=== PATIENT | female | born 1955 | race Caucasian/White ===

== ENCOUNTER → 2018-02-05 15:21 | Outpatient (REF) | payer MEDICARE, MEDICAID, SELFPAY ==
[2018-02-05 18:18] LABS: Anion Gap 13.8 mEq/L (5-15); Carbon Dioxide 30 mmol/L (21.0-32.0); Chloride 103 mmol/L (98-107); Glucose 160 mg/dL (74-106); Potassium 4.8 mmoL/L (3.5-5.1); Sodium 142 mmol/L (136-145)
[2018-02-05 18:31] LABS: Basophils # 0.1 K/mm3 (0-0.2); Basophils % 0.6 % (0.1-2.0); Eosinophils # 0.3 K/mm3 (0.0-0.4); Eosinophils % 2.5 % (0.1-12.0); Hemoglobin 14.5 g/dL (12.2-16.2); Lymphocytes % 25.3 K/mm3 (10-50); Mean Corpuscular HGB Conc 33.7 g/dL (31.8-35.4); Mean Corpuscular Hemoglobin 31.7 pg (27.0-31.2); Mean Platelet Volume 7.6 fl (7.4-10.4); Monocytes # 0.5 K/mm3 (0.1-1.0); Monocytes % 4.5 % (1.7-9.3); Neutrophils % 67.1 % (37.0-80.0); Platelet Count 444 K/mm3 (142-424); Red Blood Count 4.58 M/mm3 (4.20-5.40); Red Cell Distribution Width 13.3 % (11.5-17.5)
[2018-02-05 19:08] LABS: Alanine Aminotransferase 13 U/L (12-78); Alkaline Phosphatase 102 U/L (46-116); Aspartate Amino Transferase 19 U/L (15-37); Bilirubin,Total 0.3 mg/dL (0.2-1.0); Blood Urea Nitrogen 13 mg/dL (7-18); Calcium 9.6 mg/dL (8.5-10.1); Chol/HDL Ratio 4.3 (1-3.5); Cholesterol 172 mg/dL (140-200); Creatinine,Serum 0.96 mg/dL (0.55-1.02); Estimated Glomerular Filt Rate 59 ml/min (>60); Free T4 (Free Thyroxine) 0.98 ng/dl (0.76-1.46); GFR (African American) 71 ML/MIN (>60); HDL Cholesterol 40 mg/dL (29-89); LDL Cholesterol 92 mg/dL (0-130); Thyroid Stimulating Hormone 0.99 uIU/ml (0.358-3.740); Triglycerides 199 mg/dL (30-200); VLDL Cholesterol 40 mg/dL (0-40)
[2018-02-05 19:29] LABS: Amphetamine/Metha Screen,Urine Negative ng/mL (<1000); Barbiturates Screen,Urine Negative ng/mL (<200); Benzodiazepines Screen,Urine Negative ng/mL (200); Cannabinoid Screen,Urine Negative ng/mL (<50); Cocaine Screen,Urine Negative ng/g (<300); Methadone Screen,Urine Negative ng/mL (<300); Opiate Screen,Urine Positive ng/mL (<300); Phencyclidine Screen,Urine Negative ng/mL (<25)
[2018-02-05 19:48] LABS: Hemoglobin A1C 6.6 % (0.0-7.0)
== END ==
LOC: LAB 15:21
PROVIDERS: Visit Provider Emergency Medicine
DX: M79.7 Fibromyalgia (principal); I10 Essential (primary) hypertension; E11.9 Type 2 diabetes mellitus without complications; M54.9 Dorsalgia, unspecified
CPT/HCPCS: 80053; 80061; 80305; 83036; 84439; 84443; 85025

== ENCOUNTER → 2018-03-03 15:12 | Outpatient (REF) | payer MEDICARE, MEDICAID, SELFPAY ==
[2018-03-03 20:56] LABS: Amphetamine/Metha Screen,Urine Negative ng/mL (<1000); Barbiturates Screen,Urine Negative ng/mL (<200); Benzodiazepines Screen,Urine Negative ng/mL (200); Cannabinoid Screen,Urine Negative ng/mL (<50); Cocaine Screen,Urine Negative ng/g (<300); Methadone Screen,Urine Negative ng/mL (<300); Opiate Screen,Urine Positive ng/mL (<300); Phencyclidine Screen,Urine Negative ng/mL (<25)
== END ==
LOC: LAB 15:12
PROVIDERS: Visit Provider Emergency Medicine
DX: Z79.899 Other long term (current) drug therapy (principal)
CPT/HCPCS: 80305

== ENCOUNTER → 2020-06-13 14:47 | Outpatient (CLI) | payer MEDICARE, MEDICAID, SELFPAY | PROVIDERS: Visit Provider Pediatrics | DX: L03.031 Cellulitis of right toe (principal) | CPT/HCPCS: 87070; 87077; 87186; 87205 ==

== ENCOUNTER → 2020-07-02 11:41 | Outpatient (CLI) | payer MEDICARE, MEDICAID, SELFPAY ==
--- NOTE | 2020-07-02 11:50 | XR_ITS ---
PROCEDURE: XR FOOT WT BEARING RT 3V CLINICAL INDICATION: Wound, pain COMPARISON: No exams were available for comparison FINDINGS: No fracture or dislocation. No lytic or blastic change. There is normal mineralization. The joint spaces are well-preserved. No significant degenerative/arthritic changes. No erosive changes evident. There is an accessory navicular bone. There is no definite abnormality of the soft tissues of the great toe. There is a small spur of the calcaneus at the insertion of the plantar tendon with 2 tiny bony ossicles adjacent to the spur. The plantar arch is normal. Other findings:None. IMPRESSION: No acute findings. No definite periosteal reaction of the 1st metatarsal head, proximal and distal phalanx of the great toe and no definite abnormal soft tissue radiolucency identified. Dictated by: Dr. Maynor Licea MD 07/03/2020 11:46 Dr. Maynor Licea MD in [place] 07/03/2020 11:46
[2020-07-02 13:06] LABS: Basophils # 0.1 K/mm3 (0-0.2); Basophils % 0.7 % (0.1-2.0); Eosinophils # 0.3 K/mm3 (0.0-0.4); Eosinophils % 2.8 % (0.1-12.0); Hematocrit 44.3 % (37.0-47.0); Hemoglobin 15.4 g/dL (12.2-16.2); Lymphocytes # 3.1 K/mm3 (0.7-4.5); Lymphocytes % 26.2 % (10-50); Mean Corpuscular HGB Conc 34.8 g/dL (31.8-35.4); Mean Corpuscular Hemoglobin 33.2 pg (27.0-31.2); Mean Corpuscular Volume 95.2 fl (81-99); Mean Platelet Volume 7.7 fl (7.4-10.4); Monocytes # 0.6 K/mm3 (0.1-1.0); Monocytes % 5.1 % (1.7-9.3); Neutrophils # 7.7 K/mm3 (1.8-7.8); Neutrophils % 65.2 % (37.0-80.0); Platelet Count 331 K/mm3 (142-424); Red Blood Count 4.66 M/mm3 (4.20-5.40); Red Cell Distribution Width 13.1 % (11.5-17.5); White Blood Count 11.8 K/mm3 (4.8-10.8)
[2020-07-02 13:25] LABS: Hemoglobin A1C 9.8 % (4.0-6.0)
[2020-07-02 13:32] LABS: Erythrocyte Sedimentation Rate 16 mm/hr (0-30)
[2020-07-02 13:35] LABS: Alanine Aminotransferase 20 U/L (12-78); Albumin Level 4.3 g/dl (3.5-5.0); Albumin/Globulin Ratio 1.5 (1.1-1.8); Alkaline Phosphatase 102 U/L (38-126); Anion Gap 17.1 mEq/L (5-15); Aspartate Amino Transferase 37 U/L (14-36); Bilirubin,Total 0.4 mg/dl (0.2-1.3); Blood Urea Nitrogen 23 mg/dl (7-17); Calcium 11.4 mg/dl (8.4-10.2); Carbon Dioxide 30 mmol/L (22.0-30.0); Chloride 94 mmol/L (98-107); Estimated Glomerular Filt Rate 50 ml/min (>60); GFR (African American) 61 ML/MIN (>60); Globulin 2.9 g/dL (1.3-3.2); Glucose 247 mg/dl (74-100); Potassium 4.1 mmoL/L (3.5-5.1); Sodium 137 mmol/L (136-145); Total Protein,Serum 7.2 g/dl (6.3-8.2)
== END ==
PROVIDERS: PCP Pediatrics; Visit Provider Podiatrist
DX: Z51.89 Encounter for other specified aftercare (principal); E11.621 Type 2 diabetes mellitus with foot ulcer; L97.519 Non-pressure chronic ulcer of other part of right foot with unspecified severity; Z79.84 Long term (current) use of oral hypoglycemic drugs
CPT/HCPCS: 36415; 73630; 80053; 83036; 85025; 85651

== ENCOUNTER 2020-07-12 14:30 | Outpatient (RCR) | payer MEDICARE, MEDICAID, SELFPAY | END 2020-07-12 14:35 | disposition home or self-care (01) | LOC: PT 14:30 | PROVIDERS: PCP Emergency Medicine; Visit Provider Pediatrics | DX: L08.9 Local infection of the skin and subcutaneous tissue, unspecified (principal); L03.031 Cellulitis of right toe | CPT/HCPCS: 97163; 97597 ==

== ENCOUNTER → 2020-07-17 09:27 | Outpatient (CLI) | payer MEDICARE, MEDICAID, SELFPAY ==
--- NOTE | 2020-07-17 09:28 | US_ITS ---
APPROVED REPORT Exam Type: Lower Extremity Segmental Pressures Internet Sourcer: Mickie Matt RVT Indications Rest Pain: Right Current Smoker Pt has wound bottom of rt foot Risk Factors Hypertension Obesity Diabetes Current Smoker Pressures/Indices Right Indices Left Indices Brachial 115.00 mmHg Brachial 117.00 mmHg Low Thigh 125.00 mmHg 1.07 Low Thigh 139.00 mmHg 1.19 Calf 132.00 mmHg 1.13 Calf 131.00 mmHg 1.12 Ankle(PT) 125.00 mmHg 1.07 Ankle(PT) 145.00 mmHg 1.24 Ankle(DP) 130.00 mmHg 1.11 Ankle(DP) 139.00 mmHg 1.19 Digit 103.00 mmHg 0.88 Digit 112.00 mmHg 0.96 Findings RT STEVIE:1.11 LT STEVIE:1.24 RT TBI:0.88 LT TBI:0.96 NORMAL PULSES BILATERAL NORMAL WAVEFORMS BILATERAL Conclusion RT STEVIE:1.11 LT STEVIE:1.24 RT TBI:0.88 LT TBI:0.96 NORMAL PULSES BILATERAL NORMAL WAVEFORMS BILATERAL Normal appearing resting noninvasive lower extremity arterial study. Electronically signed by : Med Tolbert MD 07/17/2020 19:42:23
== END ==
PROVIDERS: PCP Pediatrics; Visit Provider Podiatrist
DX: R09.89 Other specified symptoms and signs involving the circulatory and respiratory systems (principal)
CPT/HCPCS: 93923

== ENCOUNTER → 2020-08-01 10:17 | Outpatient (CLI) | payer MEDICARE, MEDICAID, SELFPAY ==
--- NOTE | 2020-08-01 10:21 | XR_ITS ---
PROCEDURE: XR FOOT WT BEARING RT 3V CLINICAL INDICATION: suspected foreign body of right foot COMPARISON: CR FTL3 FOOT-LT-3 VIEWS from 10/14/2016 CR FTR3 FOOT-RT-3 VIEWS from 10/14/2016 CR XR FOOT WT BEARING RT 3V from 07/02/2020 FINDINGS: No fracture or dislocation. No lytic or blastic change. There is normal mineralization. The joint spaces are well-preserved. No significant degenerative/arthritic changes. No erosive changes evident. Other findings:There was a question of a foreign body along the plantar surface of the great toe. No radiopaque foreign body is identified. There is an ununited ossification center at along the dorsal aspect of the navicular and there is evidence of an old distal tibial fracture IMPRESSION: No acute findings. Dictated by: Med Tolbert MD 08/01/2020 15:17 Med Tolbert MD in [place] 08/01/2020 15:17
--- NOTE | 2020-08-01 10:21 | US_ITS ---
PROCEDURE: US EXTREMITY RT LIMITED CLINICAL INDICATION: suspected foreign body COMPARISON: No exams were available for comparison FINDINGS: There was a question of a foreign body along the plantar aspect of the 1st metatarsal phalangeal junction. Ultrasound performed of this region. No hyperechoic foreign bodies are evident. There is a new area decreased echogenicity deep to the skin defect which could represent some underlying scarring or edema. No definite foreign body is apparent. IMPRESSION: No obvious echogenic foreign body. There is some decreased echogenicity deep to the scanned defect which could represent some edema or scarring Dictated by: Med Tolbert MD 08/01/2020 15:46 Med Tolbert MD in [place] 08/01/2020 15:46
== END ==
PROVIDERS: PCP Pediatrics; Visit Provider Nurse Practitioner
DX: S90.851A Superficial foreign body, right foot, initial encounter (principal); Z51.89 Encounter for other specified aftercare
CPT/HCPCS: 73630; 76882

== ENCOUNTER → 2020-08-23 14:45 | Outpatient (CLI) | payer MEDICARE, MEDICAID, SELFPAY ==
--- NOTE | 2020-08-23 14:46 | CT_ITS ---
PROCEDURE: CT FOOT RT WO CON CLINICAL HISTORY: foreign body Foreign body evaluation, foreign body in the ball of the foot COMPARISON: CR XR FOOT WT BEARING RT 3V from 08/01/2020 TECHNIQUE: Axial images obtained with sagittal and coronal reformats. All CT scans at the facility use one or more dose reduction, viz: automated exposure control, ma/kV adjustment per patient size (including targeted exams where dose is matched to indication, i.e. head), or iterative reconstruction technique. FINDINGS: There are 3 small calcific densities along the plantar and lateral aspect of the cuboid measuring 1 and 2 mm. There is some mild soft tissue swelling at this region. These are probably related to areas of dystrophic calcification as opposed to foreign bodies. Please correlate as the patient's area of pain and tenderness and clinical concern. No markers were placed to denote the area of concern. There is a small hyperdensity along the plantar aspect of the foot at the skin surface measuring 1-2 mm as seen on series 2, image 189 and may represent something upon the patient's skin. This is in the arch of the foot along the plantar surface and could even be imbedded in the skin superficially. No fluid collections are evident. No bony erosive changes. No fracture or dislocation. Small calcaneal spurs present along with some calcification of the plantar fascia posteriorly. There is a small Achilles enthesophyte. Ununited ossification center noted left the dorsal and proximal aspect of the navicular. IMPRESSION: No definite subcutaneous radiopaque foreign body evident. There is a small cutaneous hyperdensity in the mid aspect of the plantar arch superficial to the distal calcaneal region. This may be something upon the patient scan or could even be an and bed superficial foreign body. This should be visible if it were a foreign body. Please see above for detail Dictated by: Med Tolbert MD 08/25/2020 10:47 Med Tolbert MD in [place] 08/25/2020 10:47
== END ==
PROVIDERS: PCP Pediatrics; Visit Provider Nurse Practitioner
DX: M79.5 Residual foreign body in soft tissue (principal)
CPT/HCPCS: 73700

== ENCOUNTER → 2020-10-09 17:45 | Outpatient (CLI) | payer MEDICARE, MEDICAID, SELFPAY | PROVIDERS: Visit Provider Nurse Practitioner | DX: E11.621 Type 2 diabetes mellitus with foot ulcer (principal); L97.519 Non-pressure chronic ulcer of other part of right foot with unspecified severity; Z79.84 Long term (current) use of oral hypoglycemic drugs | CPT/HCPCS: 87070; 87077; 87186; 87205 ==

== ENCOUNTER 2021-09-16 15:25 | Emergency (ER) | payer MEDICARE, MEDICAID, SELFPAY ==
[2021-09-16 15:26] VITALS: BP 113/68; PULSE 109; RESP 16; TEMP 36.8; O2SAT 96; BMI 36.1
--- NOTE | 2021-09-16 16:25 | CT_ITS ---
PROCEDURE INFORMATION: Exam: CT Abdomen And Pelvis Without Contrast Exam date and time: 09/16/2021 4:25 PM Age: 65 years old Clinical indication: Other: Right flank pain; Additional info: Right flank pain// history of kidney stones TECHNIQUE: Imaging protocol: Computed tomography of the abdomen and pelvis without contrast. Radiation optimization: All CT scans at this facility use at least one of these dose optimization techniques: automated exposure control; mA and/or kV adjustment per patient size (includes targeted exams where dose is matched to clinical indication); or iterative reconstruction. COMPARISON: ABDPELW/O CT ABD PELVIS W/O CONTRAST 05/12/2016 2:39 PM FINDINGS: Lungs: Unchanged tiny calcified nodule in the right middle lobe. Liver: Normal. No mass. Gallbladder and bile ducts: Status post cholecystectomy. Pancreas: Normal. No ductal dilation. Spleen: Normal. No splenomegaly. Adrenal glands: Normal. No mass. Kidneys and ureters: Lobular renal contours. No hydronephrosis. No stones. Stomach and bowel: Sigmoid diverticulosis noted. No CT evidence of diverticulitis. Probable duodenal diverticulum. Appendix: No evidence of appendicitis. Intraperitoneal space: Unremarkable. No free air. No significant fluid collection. Vasculature: Unremarkable. No abdominal aortic aneurysm. Lymph nodes: Unremarkable. No enlarged lymph nodes. Urinary bladder: Unremarkable as visualized. Reproductive: Unremarkable as visualized. Bones/joints: Unremarkable. No acute fracture. Soft tissues: Postsurgical changes from abdominal wall hernia repair. IMPRESSION: No acute intra-abdominal pathology. No findings to explain the patient's symptoms.
--- NOTE | 2021-09-16 16:39 | XR_ITS ---
PROCEDURE INFORMATION: Exam: XR Right Foot Exam date and time: 09/16/2021 4:39 PM Age: 65 years old Clinical indication: Pain; Foot; Right; Additional info: Foot pain right foot ulcer middle of foot -on bottom plantar side. TECHNIQUE: Imaging protocol: XR Right foot. Views: 3 or more views. COMPARISON: CT FOOT RT WO CON 08/23/2020 3:12 PM FINDINGS: Bones/joints: Suspect enthesophytes at the plantar insertion on the calcaneus. Mild scattered degenerative changes. No fracture. No malalignment. Soft tissues: Normal. IMPRESSION: No acute osseous abnormality. Bone scan offered for persistent clinical concern.
--- NOTE | 2021-09-16 16:43 | HMH.EDGENADL ---
ED Disposition Clinical Impression: Right flank pain, Ulcer of right foot due to type 2 diabetes mellitus Disposition: Home, Self-Care Condition on Discharge: Good Instructions: DI for Diabetic Foot Ulcer Prescriptions: methocarbamoL [Methocarbamol] 750 mg PO QID 7 Days #28 tab Transmission Status: Pending to [facility]/pharmacy #[id number] Referrals: Rigo Kohler MD [Primary Care Provider] - - Critical Care Critical Care Time: No Attestation: On 09/16/21, the high probability of a clinically significant, sudden or life threatening deterioration of the following system(s) required my full and direct attention, intervention and personal management. The time I documented below is in addition to time spent performing reported procedures but includes the following listed in this critical care notation. Medical Decision Making - Medical Records Medical records reviewed: Yes: I reviewed the patient's medical records. - Aris Inquiry Pt receiving controlled substance: No Vital Signs: 09/16/21 15:26 Temperature 98.3 F Temperature Source Oral Pulse Rate [Right Radial] 109 H Respiratory Rate 16 Blood Pressure [Left Arm] 113/68 Blood Pressure Mean [Left Arm] 83 Blood Pressure Source [Left Arm] Automatic Cuff Blood Pressure Position [Left Arm] Sitting 02 Sat by Pulse Oximetry 96 Oxygen Delivery Method Room Air - Lab Data Lab Results 09/16/21 16:55: Urine Color Yellow, Urine Appearance Clear, Urine pH 6.0, Ur Specific Clymer 1.020, Urine Protein Negative, Urine Glucose (UA) 3+, Urine Ketones Negative, Urine Blood Negative, Urine Nitrate Negative, Urine Bilirubin Negative, Urine Urobilinogen 0.2, Ur Leukocyte Esterase Trace, Urine RBC 5-10, Urine WBC 20-50, Ur Squamous Epith Cells 3-5, Urine Bacteria 3+ 09/16/21 17:29: WBC 12.2 H, RBC 4.45, Hgb 14.2, Hct 42.0, MCV 94.5, MCH 32.0 H, MCHC 33.8, RDW 14.5, Plt Count 413, MPV 7.9, Neut % (Auto) 73.7, Lymph % (Auto) 19.3, [place] % (Auto) 4.3, Eos % (Auto) 1.7, Baso % (Auto) 1.1, Neut # (Auto) 9.0 H, Lymph # (Auto) 2.4, [place] # (Auto) 0.5, Eos # (Auto) 0.2, Baso # (Auto) 0.1 09/16/21 17:29: Sodium 139, Potassium 4.2, Chloride 98, Carbon Dioxide 28, Anion Gap 17.2 H, BUN 22 H, Creatinine 1.10 H, Estimated Creat Clear 83, Estimated GFR 50 L, Est GFR ( Amer) 61, Glucose 141 H, Calcium 9.1, Total Bilirubin 0.3, AST 31, ALT 16, Alkaline Phosphatase 83, Total Protein 7.7, Albumin 4.6, Globulin 3.1, Albumin/Globulin Ratio 1.5, Lipase 67 Result diagrams: 09/16/21 17:29 09/16/21 17:29 Orders (Tests/Meds): ORDERS Category Date Time Status Urine Culture Stat Micro 09/16/21 16:55 Received - Radiology Data #1 Image(s): Foot/Toes Image Reviewed: Yes I reviewed the patient's radiology results, Yes I reviewed the patient's radiology image, Yes I have reviewed radiologist's interpretation IMPRESSION: No acute osseous abnormality. Bone scan offered for persistent clinical concern. - CT Data CT Scan: Abdomen, Pelvis Time Received: 18:[address] Reviewed: Yes: I have reviewed the patient's CT results, I have viewed the radiologist's interpretation Findings Narrative: IMPRESSION: No acute intra-abdominal pathology. No findings to explain the patient's symptoms. - Reevaluation(s) Time: 18:38 Reevaluation #1: On reevaluation, the patient is feeling better. There is no evidence of kidney stones or significant renal dysfunction. Patient has a follow-up in 48 hours with her primary melter supervisor for wound evaluation. She will continue her antibiotic therapy. Given strict return precautions. Verbalized understanding. Medical Decision Narrative: 65-year-old female presented to the emergency department with some right flank pain and a foot ulcer. These appear to be chronic issues. Patient is no significant abdominal tenderness on palpation. Work-up will be initiated. General Adult HPI - General Chief complaint: PAIN Stated complaint: R foot swollen,
[2021-09-16 17:06] LABS: Microscopic, Urine URINE MICROSCOPIC (MICROSCOPIC)
[2021-09-16 17:24] LABS: Appearance,Urine CLEAR (Clear); Bilirubin,Urine Negative (Negative); Blood, Urine Negative (Negative); Color,Urine YELLOW (Yellow); Glucose,Urine (UA) 3+ (Negative); Ketones,Urine Negative (Negative); Leukocyte Esterase,Urine TRACE (Negative); Nitrate,Urine Negative (Negative); Protein,Urine Negative (Negative); Urobilinogen,Urine 0.2 EU/dl (0.2)
[2021-09-16 17:53] LABS: Bacteria,Urine 3+ /lpf; WBC,Urine 20-50 #/hpf (0-3)
[2021-09-16 17:54] LABS: Basophils # 0.1 K/mm3 (0-0.2); Basophils % 1.1 % (0.1-2.0); Eosinophils # 0.2 K/mm3 (0.0-0.4); Eosinophils % 1.7 % (0.1-12.0); Hemoglobin 14.2 g/dL (12.2-16.2); Lymphocytes # 2.4 K/mm3 (0.7-4.5); Lymphocytes % 19.3 % (10-50); Mean Corpuscular HGB Conc 33.8 g/dL (31.8-35.4); Mean Corpuscular Volume 94.5 fl (81-99); Mean Platelet Volume 7.9 fl (7.4-10.4); Monocytes # 0.5 K/mm3 (0.1-1.0); Monocytes % 4.3 % (1.7-9.3); Neutrophils % 73.7 % (37.0-80.0); Platelet Count 413 K/mm3 (142-424); Red Blood Count 4.45 M/mm3 (4.20-5.40); Red Cell Distribution Width 14.5 % (11.5-17.5); White Blood Count 12.2 K/mm3 (4.8-10.8)
[2021-09-16 18:05] LABS: Alanine Aminotransferase 16 U/L (12-78); Albumin Level 4.6 g/dl (3.5-5.0); Albumin/Globulin Ratio 1.5 (1.1-1.8); Alkaline Phosphatase 83 U/L (38-126); Anion Gap 17.2 mEq/L (5-15); Aspartate Amino Transferase 31 U/L (14-36); Bilirubin,Total 0.3 mg/dl (0.2-1.3); Blood Urea Nitrogen 22 mg/dl (7-17); Calcium 9.1 mg/dl (8.4-10.2); Carbon Dioxide 28 mmol/L (22.0-30.0); Chloride 98 mmol/L (98-107); Creatinine Clearance Estimated 83 mL/min (50-200); Estimated Glomerular Filt Rate 50 ml/min (>60); GFR (African American) 61 ML/MIN (>60); Globulin 3.1 g/dL (1.3-3.2); Glucose 141 mg/dl (74-100); Lipase 67 U/L (23-300); Potassium 4.2 mmoL/L (3.5-5.1); Sodium 139 mmol/L (136-145); Total Protein,Serum 7.7 g/dl (6.3-8.2)
[2021-09-16 19:06] VITALS: BP 101/71; PULSE 93; RESP 16; TEMP 37.3; O2SAT 97
== END 2021-09-16 19:09 | disposition home or self-care (01) ==
PROVIDERS: Emergency Provider Emergency Medicine; PCP Family Medicine
DX: R10.11 Right upper quadrant pain (principal); E11.621 Type 2 diabetes mellitus with foot ulcer; L97.511 Non-pressure chronic ulcer of other part of right foot limited to breakdown of skin; I10 Essential (primary) hypertension; M79.7 Fibromyalgia; K21.9 Gastro-esophageal reflux disease without esophagitis; E78.5 Hyperlipidemia, unspecified; F17.210 Nicotine dependence, cigarettes, uncomplicated; Z79.899 Other long term (current) drug therapy
CPT/HCPCS: 73630; 74176; 80053; 81001; 83690; 85025; 87086; 96372; 99282

== ENCOUNTER 2021-12-04 12:21 | Emergency (ER) | payer MEDICARE, MEDICAID, SELFPAY ==
[2021-12-04 12:23] VITALS: BP 138/89; PULSE 86; RESP 18; TEMP 36.8; O2SAT 97; BMI 37.1
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
--- NOTE | 2021-12-04 14:17 | PC.NURSE ---
Pt to CT
[2021-12-04 15:49] VITALS: BP 129/50; PULSE 78; RESP 18; TEMP 36.8; O2SAT 95
== END 2021-12-04 15:58 | disposition home or self-care (01) ==
PROVIDERS: Emergency Provider Emergency Medicine; PCP Internal Medicine Cardiovascular Disease
DX: T15.92XA Foreign body on external eye, part unspecified, left eye, initial encounter (principal); S39.012A Strain of muscle, fascia and tendon of lower back, initial encounter; S60.457A Superficial foreign body of left little finger, initial encounter; V40.6XXA Car passenger injured in collision with pedestrian or animal in traffic accident, initial encounter; Y92.413 State road as the place of occurrence of the external cause
CPT/HCPCS: 72131; 99282